=== PATIENT | male | born 1970 | race Caucasian/White ===

== ENCOUNTER 2020-07-02 10:49 | Inpatient (IN) | payer OTHER, SELFPAY ==
[~2020-07-02] VITALS: Ht 185.4 cm; Wt 98.9 kg
[2020-07-02 11:00] VITALS: BP_SYST 133
[2020-07-02] MEDS ORDERED: NACL 0.9% 1,000 ML IV ONE (11:00)
[2020-07-02] MEDS ORDERED: MORPHINE 4 MG/ML INJ. SYRINGE IVP ONE ×2 (11:00→16:15)
[2020-07-02] MEDS ORDERED: ONDANSETRON HCL 4 MG/2 ML VIAL IVP ONE ×2 (11:00→16:15)
[2020-07-02 11:37] LABS: BASOPHILS % (AUTO) 0.2 % (0.0-2.0); HEMATOCRIT 49.3 % (36-54); HEMOGLOBIN 17.1 g/dL (14.0-18.0); LYMPHOCYTES # (AUTO) 0.6 K/uL (1.0-5.5); LYMPHOCYTES % (AUTO) 4.5 % (20.5-51.5); MEAN CORPUSCULAR HEMOGLOBIN 31 pg (27-31); MEAN CORPUSCULAR HGB CONC 35 % (32-36); MEAN CORPUSCULAR VOLUME 91 fL (79.0-98.0); MONOCYTES # (AUTO) 0.7 K/uL (0.0-1.0); MONOCYTES % (AUTO) 5.1 % (1.7-9.3); NEUTROPHILS # (AUTO) 12.6 K/uL (1.8-7.7); NEUTROPHILS % (AUTO) 90.2 % (40.0-70.0); PLATELET COUNT (AUTO) 262 K/uL (130-430); RED BLOOD CELL COUNT(AUTO) 5.45 MIL/uL (4.2-6.2); RED CELL DISTRIBUTION WIDTH 12.7 % (9.0-15.0)
[2020-07-02 11:40] LABS: CALCIUM 9.1 mg/dL (8.4-11.0); CREATININE 0.91 mg/dL (0.55-1.30); POTASSIUM 3.5 mmol/L (3.5-5.1)
[2020-07-02 11:46] LABS: ALBUMIN 4.4 g/dL (3.4-4.8); TOTAL BILIRUBIN 1.3 mg/dL (0.0-1.0)
[2020-07-02] MEDS ORDERED: fentaNYL CITRATE/PF 100 MCG/2 ML AMP IVP ONE (12:30)
[2020-07-02] MEDS ORDERED: DIPHENHYDRAMINE INJ 50 MG/ML VIAL IM ONE (14:15)
[2020-07-02] MEDS ORDERED: METOCLOPRAMIDE HCL 10 MG/2 ML VIAL IM ONE (14:15)
[2020-07-02 18:00] VITALS: BP_SYST 137
[2020-07-02] MEDS: D5/0.45 NS 1,000 ML IV SCH (18:38)
[2020-07-02] MEDS: MORPHINE 4 MG/ML INJ. SYRINGE IVP PRN ×2 (18:39→23:13)
[2020-07-02 18:45] VITALS: BP_SYST 131
[2020-07-02] MEDS ORDERED: PIPERACILLIN/TAZOBACTAM 3.375 GM/VIAL (ZOSYN) IV ONE (19:03)
[2020-07-02 20:00] VITALS: BP_SYST 118
[2020-07-02] MEDS: PIPERACILLIN/TAZO 3.375/DEX-IS 50 ML IV SCH ×3 (20:00→23:04)
[2020-07-02] MEDS: ONDANSETRON HCL 4 MG/2 ML VIAL IVP PRN (23:13)
[2020-07-03] MEDS ORDERED: PIPERACILLIN/TAZOBACTAM 3.375 GM/VIAL (ZOSYN) IV ONE (04:37)
[2020-07-03] MEDS: PIPERACILLIN/TAZO 3.375/DEX-IS 50 ML IV SCH ×4 (05:20→23:34)
[2020-07-03] MEDS: MORPHINE 4 MG/ML INJ. SYRINGE IVP PRN ×3 (05:52→23:58)
[2020-07-03] MEDS: ONDANSETRON HCL 4 MG/2 ML VIAL IVP PRN (05:52)
[2020-07-03 06:00] VITALS: BP_SYST 104
[2020-07-03 06:12] LABS: BASOPHILS % (AUTO) 0.2 % (0.0-2.0); EOSINOPHILS % (AUTO) 0.4 % (0.0-4.0); HEMATOCRIT 42.7 % (36-54); LYMPHOCYTES # (AUTO) 1.1 K/uL (1.0-5.5); LYMPHOCYTES % (AUTO) 14.3 % (20.5-51.5); MEAN CORPUSCULAR HEMOGLOBIN 32 pg (27-31); MEAN CORPUSCULAR HGB CONC 35 % (32-36); MEAN CORPUSCULAR VOLUME 90 fL (79.0-98.0); MONOCYTES # (AUTO) 0.9 K/uL (0.0-1.0); MONOCYTES % (AUTO) 11.9 % (1.7-9.3); NEUTROPHILS # (AUTO) 5.7 K/uL (1.8-7.7); NEUTROPHILS % (AUTO) 73.2 % (40.0-70.0); PLATELET COUNT (AUTO) 209 K/uL (130-430); RED BLOOD CELL COUNT(AUTO) 4.73 MIL/uL (4.2-6.2); RED CELL DISTRIBUTION WIDTH 12.5 % (9.0-15.0); WHITE BLOOD COUNT (AUTO) 7.7 K/uL (4.8-10.8)
[2020-07-03] MEDS: D5/0.45 NS 1,000 ML IV SCH ×3 (06:35→23:44)
[2020-07-03 07:08] LABS: CALCIUM 8.2 mg/dL (8.4-11.0); CREATININE 0.75 mg/dL (0.55-1.30); POTASSIUM 3.6 mmol/L (3.5-5.1)
[2020-07-03 08:00] VITALS: BP_SYST 108
[2020-07-03 12:00] VITALS: BP_SYST 99
[2020-07-03 16:00] VITALS: BP_SYST 104
[2020-07-03 20:00] VITALS: BP_SYST 119
[2020-07-03] MEDS: LR 1,000 ML IV SCH (23:44)
[2020-07-04] VITALS: BP_SYST 104; BP_SYST 130
[2020-07-04] MEDS: ONDANSETRON HCL 4 MG/2 ML VIAL IVP PRN ×2 (00:05→12:01)
[2020-07-04 04:38] LABS: BILIRUBIN,URINE 1+ (NEGATIVE); BLOOD, URINE NEGATIVE (NEGATIVE); CLARITY/URINE CLEAR (CLEAR); COLOR,URINE YELLOW (YELLOW); GLUCOSE,URINE NEGATIVE (NEGATIVE); KETONES,URINE TRACE (NEGATIVE); LEUKOCYTE ESTERASE ,URINE NEGATIVE (NEGATIVE); NITRITE, URINE NEGATIVE (NEGATIVE); PROTEIN URINE NEGATIVE (NEGATIVE)
[2020-07-04] MEDS: PIPERACILLIN/TAZO 3.375/DEX-IS 50 ML IV SCH ×4 (05:31→23:38)
[2020-07-04] MEDS: LR 1,000 ML IV SCH ×4 (05:32→21:31)
[2020-07-04 07:30] LABS: BASOPHILS % (AUTO) 0.3 % (0.0-2.0); EOSINOPHILS # (AUTO) 0.1 K/uL (0.0-0.4); EOSINOPHILS % (AUTO) 0.9 % (0.0-4.0); HEMATOCRIT 41.8 % (36-54); HEMOGLOBIN 14.7 g/dL (14.0-18.0); LYMPHOCYTES # (AUTO) 1.2 K/uL (1.0-5.5); LYMPHOCYTES % (AUTO) 20.5 % (20.5-51.5); MEAN CORPUSCULAR HEMOGLOBIN 32 pg (27-31); MEAN CORPUSCULAR HGB CONC 35 % (32-36); MEAN CORPUSCULAR VOLUME 91 fL (79.0-98.0); MONOCYTES # (AUTO) 0.7 K/uL (0.0-1.0); MONOCYTES % (AUTO) 12.7 % (1.7-9.3); NEUTROPHILS # (AUTO) 3.7 K/uL (1.8-7.7); NEUTROPHILS % (AUTO) 65.6 % (40.0-70.0); PLATELET COUNT (AUTO) 210 K/uL (130-430); RED BLOOD CELL COUNT(AUTO) 4.59 MIL/uL (4.2-6.2); RED CELL DISTRIBUTION WIDTH 12.8 % (9.0-15.0); WHITE BLOOD COUNT (AUTO) 5.7 K/uL (4.8-10.8)
[2020-07-04 07:41] LABS: CALCIUM 8.2 mg/dL (8.4-11.0); CREATININE 0.84 mg/dL (0.55-1.30); POTASSIUM 3.5 mmol/L (3.5-5.1)
[2020-07-04 08:00] VITALS: BP_SYST 116
[2020-07-04 08:17] LABS: PROTHROMBIN TIME 9.9 SECS (9.5-12.5)
[2020-07-04] MEDS ORDERED: LR 1,000 ML IV.SOLN IV ONE (08:20)
[2020-07-04] MEDS ORDERED: PROPOFOL 200MG/ 20ML VIAL (DIPRIVAN) IV ONE (08:20)
[2020-07-04] MEDS ORDERED: NEOSTIGMINE METHYLSULFATE 1 MG/ML, 10 ML VIAL IVP ONE (08:20)
[2020-07-04] MEDS ORDERED: KETOROLAC TROMETHAMINE 30 MG VIAL IVP ONE (08:20)
[2020-07-04] MEDS ORDERED: ROCURONIUM BROMIDE 10 MG/ML (ZEMURON) IV ONE (08:20)
[2020-07-04] MEDS ORDERED: NS IRRIG SOLN 1000 ML IR ONE (08:20)
[2020-07-04] MEDS ORDERED: GLYCOPYRROLATE 0.2 MG/ML VIAL IJ ONE (08:20)
[2020-07-04] MEDS ORDERED: fentaNYL CITRATE 250 MCG/5 ML AMP IV ONE (08:20)
[2020-07-04] MEDS ORDERED: SEVOFLURANE 15 MIN GAS INH ONE (08:20)
[2020-07-04] MEDS ORDERED: MIDAZOLAM HCL 5 MG/5 ML VIAL IVP ONE (08:20)
[2020-07-04] MEDS ORDERED: ONDANSETRON HCL 4 MG/2 ML VIAL IVP ONE (08:20)
[2020-07-04] MEDS ORDERED: NALOXONE HCL 0.4 MG/ML AMP (NARCAN) IVP PRN (08:45)
[2020-07-04] MEDS ORDERED: HYDROmorphone 1 MG INJ. 1 MG/ML AMPUL IVP ONE (08:45)
[2020-07-04] MEDS ORDERED: ONDANSETRON HCL 4 MG/2 ML VIAL IVP PRN (09:00)
[2020-07-04] MEDS ORDERED: fentaNYL CITRATE/PF 100 MCG/2 ML AMP IVP PRN ×2 (09:00)
[2020-07-04] MEDS ORDERED: fentaNYL CITRATE/PF 100 MCG/2 ML AMP ONE (10:48)
[2020-07-04 11:40] VITALS: BP_SYST 125
[2020-07-04] MEDS: MORPHINE 4 MG/ML INJ. SYRINGE IVP PRN (12:13)
[2020-07-04] MEDS: METOCLOPRAMIDE HCL 10 MG/2 ML VIAL IVP PRN ×2 (14:17→21:30)
[2020-07-04] MEDS: HYDROcodone/ACETAMIN 5-325 MG TAB (NORCO/ VICODIN) PO PRN ×2 (14:17→21:31)
[2020-07-04] MEDS ORDERED: HYDROmorphone 1 MG INJ. 1 MG/ML AMPUL IVP PRN (14:45)
[2020-07-04 16:00] VITALS: BP_SYST 152
[2020-07-04 20:00] VITALS: BP_SYST 116
[2020-07-05] VITALS: BP_SYST 104
[2020-07-05] MEDS: LR 1,000 ML IV SCH ×2 (02:30→05:03)
[2020-07-05] MEDS: PIPERACILLIN/TAZO 3.375/DEX-IS 50 ML IV SCH (05:03)
[2020-07-05] MEDS: HYDROcodone/ACETAMIN 5-325 MG TAB (NORCO/ VICODIN) PO PRN (06:49)
[2020-07-05] MEDS: METOCLOPRAMIDE HCL 10 MG/2 ML VIAL IVP PRN (06:49)
[2020-07-05 08:04] VITALS: BP_SYST 120
[2020-07-05 10:59] LABS: BASOPHILS # (AUTO) 0.1 K/uL (0.0-0.2); BASOPHILS % (AUTO) 0.8 % (0.0-2.0); EOSINOPHILS % (AUTO) 0.5 % (0.0-4.0); LYMPHOCYTES # (AUTO) 1.6 K/uL (1.0-5.5); LYMPHOCYTES % (AUTO) 25.5 % (20.5-51.5); MEAN CORPUSCULAR HEMOGLOBIN 31 pg (27-31); MEAN CORPUSCULAR HGB CONC 34 % (32-36); MEAN CORPUSCULAR VOLUME 91 fL (79.0-98.0); MONOCYTES # (AUTO) 0.8 K/uL (0.0-1.0); MONOCYTES % (AUTO) 12.4 % (1.7-9.3); NEUTROPHILS # (AUTO) 3.9 K/uL (1.8-7.7); NEUTROPHILS % (AUTO) 60.8 % (40.0-70.0); PLATELET COUNT (AUTO) 206 K/uL (130-430); RED CELL DISTRIBUTION WIDTH 12.7 % (9.0-15.0); WHITE BLOOD COUNT (AUTO) 6.5 K/uL (4.8-10.8)
[2020-07-05 11:48] VITALS: BP_SYST 108
[2020-07-05 12:03] LABS: ALBUMIN 2.9 g/dL (3.4-4.8); CALCIUM 8.1 mg/dL (8.4-11.0); CREATININE 0.85 mg/dL (0.55-1.30); POTASSIUM 3.6 mmol/L (3.5-5.1); TOTAL BILIRUBIN 0.5 mg/dL (0.0-1.0)
[2020-07-05 14:54] VITALS: BP_SYST 108
[2020-07-05] MEDS ORDERED: HYDR-4272 PO (15:56)
[2020-07-05 16:14] VITALS: BP_SYST 108; BP_SYST 119
[2020-07-05] MEDS ORDERED: levoFLOXacin 500 MG TABLET PO SCH (21:00)
== END 2020-07-05 17:30 | disposition home or self-care (01) | DRG 417 ==
LOC: SED 10:49 → SMU 17:08
PROVIDERS: ADMIT Internal Medicine; ATTEND Internal Medicine
PROC: BF131ZZ Fluoroscopy of Gallbladder and Bile Ducts using Low Osmolar Contrast (ICD-10-PCS; 2020-07-04)
PROC: 0FT44ZZ Resection of Gallbladder, Percutaneous Endoscopic Approach (ICD-10-PCS; principal; 2020-07-04 08:20)
DX: K80.62 Calculus of gallbladder and bile duct with acute cholecystitis without obstruction (principal); K85.90 Acute pancreatitis without necrosis or infection, unspecified; K42.9 Umbilical hernia without obstruction or gangrene; Z20.828 Contact with and (suspected) exposure to other viral communicable diseases; D72.829 Elevated white blood cell count, unspecified
CPT/HCPCS: 36415; 76000; 76700-TC; 80048; 80053; 81003; 82150-TC; 83690-TC; 85025; 85610-TC; 85730-TC; 86886; 86900; 86901; 87040-TC; 87081; 88304; 96361; 96374; 96375; 96376; 99285; C1727; C1758; J1170; J1885; J2250; J2270; J2405; J2543; J2704; J2710; J2765; J3010; J3490; J7060; J7120; Q9967